=== PATIENT | female | born 2000 | race Caucasian/White ===

== ENCOUNTER 2021-04-14 08:39 | Emergency (ER) | payer BC ==
[2021-04-14 08:57] LABS: AMPHETAMINES,URINE NEGATIVE (NEGATIVE); BARBITURATES,URINE NEGATIVE (NEGATIVE); BENZODIAZEPINE,URINE NEGATIVE (NEGATIVE); MDMA (ECSTASY), URINE NEGATIVE (NEGATIVE); METHADONE,URINE NEGATIVE (NEGATIVE); METHAMPHETAMINES,URINE NEGATIVE (NEGATIVE); OPIATES,URINE NEGATIVE (NEGATIVE); OXYCODONE,URINE NEGATIVE (NEGATIVE); PHENCYCLIDINE,URINE NEGATIVE (NEGATIVE); TCA,URINE NEGATIVE (NEGATIVE)
[2021-04-14] MEDS ORDERED: Sodium Chloride 0.9% 1,000 ML IV ONE (08:58)
--- NOTE | 2021-04-14 09:05 | EDM.PDOC ---
ED [facility] GENERAL MEDICAL PROBLEM - General Chief Complaint: Gastrointestinal Problem Stated Complaint: PAIN IN LOWER RIGHT ABD. Time Seen by Provider: 04/14/21 08:50 Source of Information: Reports: Patient History Limitations: Reports: No Limitations - History of Present Illness INITIAL COMMENTS - FREE TEXT/NARRATIVE: This 20 yo female patient reports to the ED with abdominal pain to her right lower quadrant. The patient reports she started to have symptoms this morning at about 0500. The patient reports her symptoms have continued to get worse. The patient currently rates her pain at a 3-4/10. The patient reports she is currently having her menstrual cycle. The patient reports increased pain while hitting bumps as she was coming to the ED. The patient denies any history of ovarian cysts (but her sister and mother have them). The patient denies any surgical history. Onset: Today Onset Date: 04/14/21 Onset Time: 05:00 Duration: Constant Location: Reports: Abdomen (lower) Quality: Reports: Ache, Sharp Severity: Moderate Improves with: Reports: None Worsens with: Reports: None Context: Reports: Other Associated Symptoms: Reports: No Other Symptoms - Related Data Allergies Allergy/AdvReac Type Severity Reaction Status Date / Time No Known Allergies Allergy Verified 04/14/21 09:22 ED ROS GENERAL - Review of Systems Review Of Systems: Comprehensive ROS is negative, except as noted in HPI. ED EXAM, GI/ABD - Physical Exam Exam: See Below Exam Limited By: No Limitations General Appearance: Alert, WD/WN, Moderate Distress Eyes: Bilateral: Normal Appearance, EOMI Ears: Normal External Exam, Normal Canal, Hearing Grossly Normal, Normal TMs Nose: Normal Inspection, Normal Mucosa, No Blood Throat/Mouth: Normal Inspection, Normal Lips, Normal Teeth, Normal Gums, Normal Oropharynx, Normal Voice, No Airway Compromise Head: Atraumatic, Normocephalic Neck: Normal Inspection, Supple, Non-Tender, Full Range of Motion Respiratory/Chest: No Respiratory Distress, Lungs Clear, Normal Breath Sounds, No Accessory Muscle Use, Chest Non-Tender Cardiovascular: Normal Peripheral Pulses, Regular Rate, Rhythm, No Edema, No Gallop, No JVD, No Murmur, No Rub GI/Abdominal Exam: Normal Bowel Sounds, No Organomegaly, No Distention, No Abnormal Bruit, No Mass, Pelvis Stable, Rebound, Tender (Right lower quadrant) (Female) Exam: Deferred Rectal (Female) Exam: Deferred Back Exam: Normal Inspection, Full Range of Motion, NT Extremities: Normal Inspection, Normal Range of Motion, Non-Tender, Normal Capillary Refill, No Pedal Edema Neurological: Alert, Oriented, CN II-XII Intact, Normal Cognition, Normal Gait, Normal Reflexes, No Motor/Sensory Deficits Psychiatric: Normal Affect, Normal Mood Skin Exam: Warm, Dry, Intact, Normal Color, No Rash Lymphatic: No Adenopathy Course - Vital Signs Last Recorded V/S: Last Vital Signs Temp 97.3 F 04/14/21 08:56 Pulse 107 H 04/14/21 08:56 Resp 18 04/14/21 08:56 BP 150/78 H 04/14/21 08:56 Pulse Ox 97 04/14/21 08:56 - Orders/Labs/Meds Orders: Active Orders 24 hr Category Date Time Status CULTURE BLOOD [BC] Stat Lab 04/14/21 08:57 Ordered Sodium Chloride 0.9% [Normal Saline] 1,000 ml Med 04/14/21 08:58 Ordered IV .BOLUS Medication Orders Sodium Chloride (Normal Saline) 1,000 mls @ 250 mls/hr IV .BOLUS ONE Stop: 04/14/21 12:57 Last Admin: 04/14/21 09:15 Dose: 250 mls/hr Documented by: GENOVEVA Labs: Laboratory Tests 04/14/21 04/14/21 04/14/21 Range/Units 08:46 08:46 08:46 WBC (5.0-10.0) 10^3/uL RBC (4.2-5.4) 10^6/uL Hgb (12.0-16.0) g/dL Hct (37.0-47.0) % MCV (80-100) fL MCH (27.0-34.0) pg MCHC (33.0-35.0) g/dL Plt Count (150-450) 10^3/uL Neut % (Auto) (42.2-75.2) % Lymph % (Auto) (20.5-50.1) % [place] % (Auto) (2-8) % Eos % (Auto) (1.0-3.0) % Baso % (Auto) (0.0-1.0) % Sodium (136-145) mmol/L Potassium (3.5-5.1) mmol/L Chloride (98-107) mmol/L Carbon Dioxide (21-32) mmol/L Anion Gap (7-13) mEq/L BUN (7-18) mg/dL Creatinine (0.55-1.02) mg/dL Est Cr Clr Drug Dosing mL/min Estimated GFR (MDRD) BUN/Creatinine Ratio (No establ ref range) Glucose (70-99) mg/dL Lactic Acid (0.4-2.0) mmol/L Calcium (8.5-10.1) mg/dL Total Bilirubin (0.2-1.0) mg/dL AST (15-37) U/L ALT (14-59) U/L Alkaline Phosphatase (46-116) U/L Total Protein (6.4-8.2) g/dL Albumin (3.4-5.0) g/dL Globulin Albumin/Globulin Ratio Amylase (25-115) U/L Lipase (73-393) U/L Urine Color Yellow (YELLOW) Urine Appearance Clear (CLEAR) Urine pH 7.0 (5.0-9.0) Ur Specific [place] 1.025 (1.005-1.030) Urine Protein Negative (NEGATIVE) Urine Glucose (UA) Negative (NEGATIVE) Urine Ketones Negative (NEGATIVE) Urine Occult Blood Trace-intact H (NEGATIVE) Urine Nitrite Negative (NEGATIVE) Urine Bilirubin Negative (NEGATIVE) Urine Urobilinogen 0.2 (0.2-1.0) mg/dL Ur Leukocyte Esterase Negative (NEGATIVE) Urine RBC 0-5 (0-5) /HPF Urine WBC 0-5 (0-5/HPF) /HPF Ur Epithelial Cells Few (NOT SEEN) /HPF Urine Bacteria Moderate H (0-FEW/HPF) /HPF Urine Mucus Rare (NOT SEEN) /LPF Urine HCG, Qual Negative Urine Opiates Screen Negative (NEGATIVE) Ur Oxycodone Screen Negative (NEGATIVE) Urine Methadone Screen Negative (NEGATIVE) Ur Barbiturates Screen Negative (NEGATIVE) U Tricyclic Antidepress Negative (NEGATIVE) Ur Phencyclidine Scrn Negative (NEGATIVE) Ur Amphetamine Screen Negative (NEGATIVE) U Methamphetamines Scrn Negative (NEGATIVE) Urine MDMA Screen Negative (NEGATIVE) U Benzodiazepines Scrn Negative (NEGATIVE) Urine Cocaine Screen Negative (NEGATIVE) U Marijuana (THC) Screen Negative (NEGATIVE) 04/14/21 04/14/2121 Range/Units 09:10 09:10 09:10 WBC 19.0 H (5.0-10.0) 10^3/uL RBC 4.79 (4.2-5.4) 10^6/uL Hgb 12.2 (12.0-16.0) g/dL Hct 39.2 (37.0-47.0) % MCV 81.8 (80-100) fL MCH 25.5 L (27.0-34.0) pg MCHC 31.1 L (33.0-35.0) g/dL Plt Count 443 (150-450) 10^3/uL Neut % (Auto) 83.1 H (42.2-75.2) % Lymph % (Auto) 11.7 L (20.5-50.1) % [place] % (Auto) 4.4 (2-8) % Eos % (Auto) 0.6 L (1.0-3.0) % Baso % (Auto) 0.2 (0.0-1.0) % Sodium 140 (136-145) mmol/L Potassium 4.5 (3.5-5.1) mmol/L Chloride 103 (98-107) mmol/L Carbon Dioxide 27 (21-32) mmol/L Anion Gap 14.5 H (7-13) mEq/L BUN 5 L (7-18) mg/dL Creatinine 0.68 (0.55-1.02) mg/dL Est Cr Clr Drug Dosing 117.76 mL/min Estimated GFR (MDRD) > 60 BUN/Creatinine Ratio 7.4 (No establ ref range) Glucose 85 (70-99) mg/dL Lactic Acid 1.6 (0.4-2.0) mmol/L Calcium 8.4 L (8.5-10.1) mg/dL Total Bilirubin 0.2 (0.2-1.0) mg/dL AST 12 L (15-37) U/L ALT 17 (14-59) U/L Alkaline Phosphatase 75 (46-116) U/L Total Protein 7.1 (6.4-8.2) g/dL Albumin 2.9 L (3.4-5.0) g/dL Globulin 4.2 Albumin/Globulin Ratio 0.69 Amylase 46 (25-115) U/L Lipase 71 L (73-393) U/L Urine Color (YELLOW) Urine Appearance (CLEAR) Urine pH (5.0-9.0) Ur Specific [place] (1.005-1.030) Urine Protein (NEGATIVE) Urine Glucose (UA) (NEGATIVE) Urine Ketones (NEGATIVE) Urine Occult Blood (NEGATIVE) Urine Nitrite (NEGATIVE) Urine Bilirubin (NEGATIVE) Urine Urobilinogen (0.2-1.0) mg/dL Ur Leukocyte Esterase (NEGATIVE) Urine RBC (0-5) /HPF Urine WBC (0-5/HPF) /HPF Ur Epithelial Cells (NOT SEEN) /HPF Urine Bacteria (0-FEW/HPF) /HPF Urine Mucus (NOT SEEN) /LPF Urine HCG, Qual Urine Opiates Screen (NEGATIVE) Ur Oxycodone Screen (NEGATIVE) Urine Methadone Screen (NEGATIVE) Ur Barbiturates Screen (NEGATIVE) U Tricyclic Antidepress (NEGATIVE) Ur Phencyclidine Scrn (NEGATIVE) Ur Amphetamine Screen (NEGATIVE) U Methamphetamines Scrn (NEGATIVE) Urine MDMA Screen (NEGATIVE) U Benzodiazepines Scrn (NEGATIVE) Urine Cocaine Screen (NEGATIVE) U Marijuana (THC) Screen (NEGATIVE) Meds: Medications Generic Name Dose Route Start Last Admin Trade Name Freq PRN Reason Stop Dose Admin Sodium Chloride 1,000 mls @ 250 mls/hr 04/14/21 08:58 04/14/21 09:15 Normal Saline IV 04/14/21 12:57 250 mls/hr .BOLUS ONE Administration Discontinued Medications Generic Name Dose Route Start Last Admin Trade Name Freq PRN Reason Stop Dose Admin Hydromorphone HCl 0.5 mg 04/14/21 11:17 Hydromorphone 0.5 Mg/0.5 Ml Syringe IVPUSH 04/14/21 11:18 ONETIME ONE Iopamidol 100 ml 04/14/21 09:46 04/14/21 10:16 Iopamidol 612 Mg/Ml 100 Ml Bottle IVPUSH 04/14/21 09:47 100 ml ONETIME ONE Administration Morphine Sulfate 2 mg 04/14/21 09:48 04/14/21 09:58 Morphine 2 Mg/Ml Syringe IVPUSH 04/14/21 09:49 2 mg ONETIME ONE Administration Ondansetron HCl 4 mg 04/14/21 09:48 04/14/21 09:58 Ondansetron 4 Mg/2 Ml Sdv IVPUSH 04/14/21 09:49 4 mg ONETIME ONE Administration - Re-Assessments/Exams Free Text/Narrative Re-Assessment/Exam: 04/14/21 11:30 Attempted to get the patient accepted to [facility] in that order without bed availability ([id number]). Departure - Departure Time of Disposition: 11:27 Disposition: DC/Tfer to Acute Hospital 02 Condition: Serious Clinical Impression: Appendicitis Qualifiers: Appendicitis type: acute appendicitis Acute appendicitis type: with generalized peritonitis Appendicitis gangrene presence: unspecified whether gangrene present Appendicitis perforation presence: unspecified whether perforation present Appendicitis abscess presence: unspecified whether abscess present Qualified Code(s): K35.20 - Acute appendicitis with generalized peritonitis, without abscess - Discharge Information *PRESCRIPTION DRUG MONITORING PROGRAM REVIEWED*: Not Applicable *COPY OF PRESCRIPTION DRUG MONITORING REPORT IN PATIENT PETER: Not Applicable Instructions: Appendicitis, Adult, [id number] Forms: Interfacility Transfer EMTALA Care Plan Goals: Discussed the patient's history, examination, lab results, treatments and CT results with Dr. Garay (Surgeon) with [facility]. Dr. Garay accepted the patient for continued evaluation and management. The patient will be transported by [facility]. Sepsis Event Note (ED) - Focused Exam Vital Signs: Vital Signs Temp Pulse Resp BP Pulse Ox 04/14/21 08:56 97.3 F 107 H 18 150/78 H 97 - My Orders Last 24 Hours: My Active Orders 04/14/21 08:57 CULTURE BLOOD [BC] Stat 04/14/21 08:58 Sodium Chloride 0.9% [Normal Saline] 1,000 ml IV .BOLUS - Assessment/Plan Last 24 Hours: My Active Orders 04/14/21 08:57 CULTURE BLOOD [BC] Stat 04/14/21 08:58 Sodium Chloride 0.9% [Normal Saline] 1,000 ml IV .BOLUS
[2021-04-14 09:37] LABS: ANION GAP 14.5 mEq/L (7-13); CHLORIDE,CL 103 mmol/L (98-107); SODIUM,NA 140 mmol/L (136-145)
[2021-04-14] MEDS ORDERED: Iopamidol 612 MG/ML 100 ML Bottle IVPUSH ONE (09:46)
[2021-04-14] MEDS ORDERED: Morphine 2 MG/ML SYRINGE IVPUSH ONE (09:48)
[2021-04-14] MEDS ORDERED: Ondansetron 4 MG/2 ML SDV IVPUSH ONE (09:48)
--- NOTE | 2021-04-14 10:52 | CT ---
PROCEDURE INFORMATION: Exam: CT Abdomen And Pelvis With Contrast Exam date and time: 04/14/2021 9:53 AM Age: 20 years old Clinical indication: Abdominal pain; Localized; Right lower quadrant (rlq); Additional info: Right lower quadrant pain (wbc - 19.0) TECHNIQUE: Imaging protocol: Computed tomography of the abdomen and pelvis with contrast. Radiation optimization: All CT scans at this facility use at least one of these dose optimization techniques: automated exposure control; mA and/or kV adjustment per patient size (includes targeted exams where dose is matched to clinical indication); or iterative reconstruction. Contrast material: ISOVUE 300; Contrast volume: 100 ml; Contrast route: INTRAVENOUS (IV); COMPARISON: No relevant prior studies available. FINDINGS: Liver: Sagittal length 21 cm. Normal. No mass. Gallbladder and bile ducts: Normal. No calcified stones. No ductal dilation. Pancreas: Normal. No ductal dilation. Spleen: Sagittal length 10 cm. Normal. No splenomegaly. Adrenal glands: Normal. No mass. Kidneys and ureters: Normal. No hydronephrosis. Stomach and bowel: Unremarkable. No obstruction. No mucosal thickening. Appendix: 10 mm dilated appendix with periappendiceal stranding. Appendix is cephalad to the iliac crest. Intraperitoneal space: Unremarkable. No free air. No significant fluid collection. Vasculature: Unremarkable. No abdominal aortic aneurysm. Lymph nodes: Subcentimeter mesenteric the lymph nodes medial to the inflamed appendix. No enlarged lymph nodes. Urinary bladder: Unremarkable as visualized. Reproductive: Unremarkable as visualized. Bones/joints: Unremarkable. No acute fracture. Soft tissues: Unremarkable. IMPRESSION: 1. Findings compatible with acute appendicitis. 10 mm dilated appendix with periappendiceal stranding. 2. Hepatomegaly.
[2021-04-14] MEDS ORDERED: HYDROmorphone 0.5 MG/0.5 ML Syringe IVPUSH ONE (11:17)
== END 2021-04-14 11:56 ==
LOC: DL.ED 08:39
DX: K35.20 Acute appendicitis with generalized peritonitis, without abscess (principal)
CPT/HCPCS: 36415; 74177; 80053; 80305; 81001; 81025; 82150; 83605; 83690; 85025; 87040; 96374; 96375; 99285; J1170; J2270; J2405; J7030; Q9967

== ENCOUNTER 2021-04-23 14:05 | Emergency (ER) | payer BC | END 2021-04-23 16:18 | disposition left against medical advice (07) | LOC: DL.ED 14:05 | DX: R10.9 Unspecified abdominal pain (principal); Z53.21 Procedure and treatment not carried out due to patient leaving prior to being seen by health care provider ==

== ENCOUNTER 2021-05-07 13:29 | Emergency (ER) | payer BC | END 2021-05-07 15:16 | disposition left against medical advice (07) | LOC: DL.ED 13:29 | DX: Z53.21 Procedure and treatment not carried out due to patient leaving prior to being seen by health care provider (principal) ==

== ENCOUNTER 2023-11-17 16:13 | Emergency (ER) | payer OTHER ==
[2023-11-17] MEDS: Ketorolac 30 MG/ML SDV IM ONE (16:43)
== END 2023-11-17 17:34 | disposition home or self-care (01) ==
LOC: DL.ED 16:13
DX: O03.9 Complete or unspecified spontaneous abortion without complication (principal); Z91.048 Other nonmedicinal substance allergy status; Z79.899 Other long term (current) drug therapy
CPT/HCPCS: 96372; 99283; J1885

== ENCOUNTER 2024-10-05 00:10 | Inpatient (IN) | payer OTHER ==
[~2024-10-05 00:10] MED LIST: Carboprost Tromethamine 250 MCG/1 ML Amp IM PRN; Methylergonovine 0.2 MG/1 ML Amp IM PRN; Ondansetron 4 MG/2 ML SDV IVPUSH PRN; Oxytocin/Lactated Ringers 30 UNIT/500 ML BAG IV SCH; Sodium Chloride 0.9% 10 ML Syringe FLUSH PRN; Tranexamic Acid 1,000 MG in Sodium Chloride 0.9% 100 ML IV PRN; fentaNYL 100 MCG/2 ML SDV IVPUSH PRN
[2024-10-05 00:38] LABS: HEMATOCRIT 35.6 % (37.0-47.0); HEMOGLOBIN 10.9 g/dL (12.0-16.0); MEAN CORPUSCULAR HEMOGLOBIN 23.7 pg (27.0-34.0); MEAN CORPUSCULAR HGB CONC 30.6 g/dL (33.0-35.0); MEAN CORPUSCULAR VOLUME 77.4 fL (80-100); RED BLOOD CELL COUNT 4.6 10^6/uL (4.2-5.4); WHITE BLOOD CELL COUNT,WBC 14.3 10^3/uL (5.0-10.0)
[2024-10-05 00:57] LABS: ALANINE AMINOTRANSFERASE,ALT 13 U/L (14-59); BLOOD UREA NITROGEN,BUN 7 mg/dL (7-18); CREATININE 0.65 mg/dL (0.55-1.02)
[2024-10-05 01:03] LABS: ESTIMATED GFR 125 mL/min (>=60)
[2024-10-05 01:03] LABS: CREATININE,URINE RAND 152.7 mg/dL (No establ ref range); PROTEIN CREATININE RATIO,URINE 188.6 mg/g (<150.0); PROTEIN,URINE RANDOM 28.8 mg/dL (0.0-11.9)
[2024-10-05 01:04] LABS: ASPARTATE AMNIOTRANSFERASE,AST 24 U/L (15-37)
[2024-10-05] MEDS: Labetalol 100 MG Tab PO SCH (01:11)
[2024-10-05] MEDS: Misoprostol 50 MCG (1/2 of 100 MCG) Tab PO SCH (01:11)
[2024-10-05] MEDS: hydrOXYzine HCl 25 MG Tab PO ONE (01:11)
[2024-10-05] MEDS: Acetaminophen 325 MG Tab PO PRN (05:25)
[2024-10-05] MEDS ORDERED: Lactated Ringers 1,000 ML IV ONE (12:29)
[2024-10-05] MEDS ORDERED: dexmedeTOMIDine HCl 200 MCG/2 ML SDV IV ONE (12:29)
[2024-10-05] MEDS ORDERED: fentaNYL 100 MCG/2 ML SDV EPIDUR ONE (12:29)
[2024-10-05] MEDS ORDERED: Dexamethasone 4 MG/ML SDV IV ONE (12:29)
[2024-10-05] MEDS ORDERED: Ropivacaine 100 ML EPIDUR ONE (12:29)
[2024-10-05] MEDS ORDERED: Tranexamic Acid 1,000 MG/10 ML Vial IV ONE (12:29)
[2024-10-05] MEDS ORDERED: Lidocaine 2% with EPINEPHrine 1:200,000 20 ML SDV NERVRT ONE (12:29)
[2024-10-05] MEDS ORDERED: Famotidine 20 MG/2 ML SDV IV ONE (12:29)
[2024-10-05] MEDS ORDERED: Oxytocin/Normal Saline 30 UNIT/500 ML BAG IV ONE (12:29)
[2024-10-05] MEDS ORDERED: Ketorolac 30 MG/ML SDV IVPUSH ONE (12:29)
[2024-10-05] MEDS ORDERED: Glycopyrrolate 0.2 MG/ML 2 ML SDV IV ONE (12:29)
[2024-10-05] MEDS ORDERED: Ondansetron 4 MG/2 ML SDV IV ONE (12:29)
[2024-10-05] MEDS: Misoprostol 25 MCG (1/4 of 100 MCG) Tab PO PRN (13:24)
[2024-10-06] MEDS: Misoprostol 50 MCG (1/2 of 100 MCG) Tab PO PRN (06:54)
[2024-10-06] MEDS: Lactated Ringers 1,000 ML IV ONE (15:21)
[2024-10-06] MEDS: Lactated Ringers 1,000 ML IV SCH (15:45)
[2024-10-06] MEDS: Oxytocin/Normal Saline 30 UNIT/500 ML BAG IV SCH (16:29)
[2024-10-06] MEDS ORDERED: Sodium Chloride 0.9% 10 ML Syringe FLUSH PRN (20:11)
[2024-10-06] MEDS ORDERED: Carboprost Tromethamine 250 MCG/1 ML Amp IM PRN (20:11)
[2024-10-06] MEDS ORDERED: Oxytocin 10 Units/1 ML SDV IM PRN (20:11)
[2024-10-06] MEDS ORDERED: Tranexamic Acid 1,000 MG in Sodium Chloride 0.9% 100 ML IV PRN (20:11)
[2024-10-06] MEDS ORDERED: Methylergonovine 0.2 MG Tab PO PRN (20:11)
[2024-10-06] MEDS ORDERED: Lactated Ringers 1,000 ML IV SCH ×2 (20:15)
[2024-10-06] MEDS ORDERED: Oxytocin/Lactated Ringers 30 UNIT/500 ML BAG IV SCH (20:15)
[2024-10-07] MEDS ORDERED: Famotidine 20 MG/2 ML SDV ONE (03:21)
[2024-10-07] MEDS ORDERED: Lidocaine 2% with EPINEPHrine 1:200,000 20 ML SDV ONE (03:21)
[2024-10-07] MEDS ORDERED: diphenhydrAMINE 50 MG/ML SDV IVPUSH PRN (05:29)
[2024-10-07] MEDS ORDERED: Acetaminophen 325 MG Tab PO PRN (05:29)
[2024-10-07] MEDS ORDERED: Tranexamic Acid 1,000 MG in Sodium Chloride 0.9% 100 ML IV PRN (05:29)
[2024-10-07] MEDS ORDERED: Misoprostol 100 MCG Tab RECTAL PRN (05:29)
[2024-10-07] MEDS ORDERED: Bisacodyl 10 MG Supp RECTAL PRN (05:29)
[2024-10-07] MEDS ORDERED: Carboprost Tromethamine 250 MCG/1 ML Amp IM PRN (05:29)
[2024-10-07] MEDS ORDERED: Naloxone 2 MG/2 ML Syringe IVPUSH PRN (05:29)
[2024-10-07] MEDS ORDERED: ePHEDrine 50 MG/ML SDV IVPUSH PRN (05:29)
[2024-10-07] MEDS ORDERED: Ondansetron 4 MG/2 ML SDV IVPUSH PRN (05:29)
[2024-10-07] MEDS ORDERED: Methylergonovine 0.2 MG/1 ML Amp IM PRN (05:29)
[2024-10-07] MEDS ORDERED: Ondansetron 4 MG/2 ML SDV ONE ×2 (06:21→06:23)
[2024-10-07] MEDS ORDERED: dexmedeTOMIDine HCl 200 MCG/2 ML SDV ONE (06:22)
[2024-10-07] MEDS ORDERED: Ketorolac 30 MG/ML SDV ONE (06:22)
[2024-10-07] MEDS ORDERED: Glycopyrrolate 0.2 MG/ML 2 ML SDV ONE (06:22)
[2024-10-07] MEDS ORDERED: Dexamethasone 4 MG/ML SDV ONE (06:22)
[2024-10-07] MEDS ORDERED: Oxytocin 10 Units/1 ML SDV ONE (06:22)
[2024-10-07] MEDS ORDERED: Tranexamic Acid 1,000 MG/10 ML Vial ONE (06:22)
[2024-10-07] MEDS: Lactated Ringers 1,000 ML IV SCH (08:57)
[2024-10-07] MEDS: Nalbuphine HCl 10 MG/ 1ML Amp IM ONE (09:16)
[2024-10-07] MEDS: Sodium Chloride 0.9% 10 ML Syringe FLUSH SCH (09:16)
[2024-10-07] MEDS: ceFAZolin 2 GM Vial IVPUSH ONE (09:17)
[2024-10-07] MEDS: Ferrous Sulfate 325 MG Tab PO SCH (09:18)
[2024-10-07] MEDS: Docusate Sodium 100 MG Cap PO PRN (09:18)
[2024-10-07] MEDS: Prenatal Multivitamin with Calcium/Folic Acid/Iron Tab PO SCH (09:19)
[2024-10-07] MEDS: Simethicone 80 MG Tab.Chew PO SCH (09:19)
[2024-10-07] MEDS: ceFAZolin 1 GM Vial IVPUSH SCH (09:58)
[2024-10-07] MEDS: Lidocaine 1% 30 ML SDV INJECT ONE (09:58)
[2024-10-07] MEDS: Ketorolac 30 MG/ML SDV IVPUSH SCH (10:59)
[2024-10-07] MEDS: Labetalol 100 MG Tab PO SCH (20:04)
[2024-10-07] MEDS: Labetalol 100 MG Tab PO ONE (22:10)
[2024-10-08] MEDS: Ibuprofen 800 MG Tab PO SCH (06:28)
[2024-10-08 06:35] LABS: HEMATOCRIT 31.3 % (37.0-47.0); HEMOGLOBIN 9.6 g/dL (12.0-16.0); MEAN CORPUSCULAR HEMOGLOBIN 24.2 pg (27.0-34.0); MEAN CORPUSCULAR HGB CONC 30.7 g/dL (33.0-35.0); MEAN CORPUSCULAR VOLUME 78.8 fL (80-100); RED BLOOD CELL COUNT 3.97 10^6/uL (4.2-5.4); WHITE BLOOD CELL COUNT,WBC 15.7 10^3/uL (5.0-10.0)
[2024-10-08] MEDS: Labetalol 100 MG Tab PO SCH (09:20)
[2024-10-08] MEDS: Acetaminophen/oxyCODONE 325-5 MG Tab PO PRN ×2 (09:23→13:23)
== END 2024-10-09 12:30 | disposition still patient (30) | DRG 788 ==
LOC: DL.OB 00:10 → OBSVTOIN 10-07 04:37
PROVIDERS: ADMIT Family Medicine; ATTEND Family Medicine
PROC: 3E033VJ Introduction of Other Hormone into Peripheral Vein, Percutaneous Approach (ICD-10-PCS; 2024-10-07)
PROC: 10H07YZ Insertion of Other Device into Products of Conception, Via Natural or Artificial Opening (ICD-10-PCS; 2024-10-07)
PROC: 10H073Z Insertion of Monitoring Electrode into Products of Conception, Via Natural or Artificial Opening (ICD-10-PCS; 2024-10-07)
PROC: 4A1H7CZ Monitoring of Products of Conception, Cardiac Rate, Via Natural or Artificial Opening (ICD-10-PCS; 2024-10-07)
PROC: 10907ZC Drainage of Amniotic Fluid, Therapeutic from Products of Conception, Via Natural or Artificial Opening (ICD-10-PCS; 2024-10-07)
PROC: 3E0R3BZ Introduction of Anesthetic Agent into Spinal Canal, Percutaneous Approach (ICD-10-PCS; 2024-10-07)
PROC: 00HU33Z Insertion of Infusion Device into Spinal Canal, Percutaneous Approach (ICD-10-PCS; 2024-10-07)
PROC: 3E0234Z Introduction of Serum, Toxoid and Vaccine into Muscle, Percutaneous Approach (ICD-10-PCS; 2024-10-07)
PROC: 10D00Z1 Extraction of Products of Conception, Low, Open Approach (ICD-10-PCS; principal; 2024-10-07 04:02)
DX: O13.4 Gestational [pregnancy-induced] hypertension without significant proteinuria, complicating childbirth (principal); O99.02 Anemia complicating childbirth; O99.284 Endocrine, nutritional and metabolic diseases complicating childbirth; E03.9 Hypothyroidism, unspecified; O99.214 Obesity complicating childbirth; O76 Abnormality in fetal heart rate and rhythm complicating labor and delivery; O77.0 Labor and delivery complicated by meconium in amniotic fluid; O61.9 Failed induction of labor, unspecified; Z3A.37 37 weeks gestation of pregnancy; Z37.0 Single live birth; Z90.49 Acquired absence of other specified parts of digestive tract; Z90.89 Acquired absence of other organs; Z23 Encounter for immunization
CPT/HCPCS: 36415; 51702; 82565; 82570; 84156; 84450; 84460; 84520; 85027; 86850; 86900; 86901; 86920; 86922; A9270-GY; J1100; J1885; J2405; J2590; J2795; J3010; J3490; J7120